=== PATIENT | female | born 1965 | race American Indian/Alaskan Native ===

== ENCOUNTER 2021-10-14 00:02 | Emergency (ER) | payer MEDICARE ==
--- NOTE | 2021-10-14 00:26 | Emergency Department Report ---
ED Psych HPI - General Chief Complaint: Psych Stated Complaint: MANIC Time Seen by Provider: 10/14/21 00:13 Source: patient, EMS Mode of arrival: Stretcher - History of Present Illness Initial Comments: Patient is 55 years old female with history of hypertension. Patient denied any psychiatric history before. Patient brought to the emergency room via EMS for mental health evaluation. Patient found to be manic. EMS stated the patient was really agitated and moving constantly. Patient received Versed and Benadryl by EMS for sedation. Upon arrival to the ER patient is alert, oriented x3 in no acute distress. Patient with mild pressured speech, flight of ideas and very delusional. Patient stated that somebody is trying to scam her. Patient stated that she lived in [place]. She denied any suicidal or homicidal ideation. She also denied any auditory or visual hallucination. Patient stated that she was drinking wine last night but she denied any drug abuse. MD Complaint: altered mental status - Related Data Allergies Allergy/AdvReac Type Severity Reaction Status Date / Time No Known Allergies Allergy Unverified 10/14/21 00:07 ED Review of Systems ROS: Stated complaint: MANIC Other details as noted in HPI Comment: All other systems reviewed and negative Constitutional: denies: chills, fever Respiratory: denies: cough, shortness of breath, SOB with exertion Cardiovascular: denies: chest pain, palpitations Gastrointestinal: denies: abdominal pain, nausea, vomiting, diarrhea, constipation, hematemesis, melena, hematochezia Musculoskeletal: denies: back pain Neurological: denies: headache, weakness Psychiatric: anxiety. denies: homicidal thoughts, suicidal thoughts ED Past Medical Hx - Past Medical History Previous Medical History?: Yes Hx Hypertension: Yes - Surgical History Past Surgical History?: Yes ED Physical Exam - General Limitations: Altered Mental Status General appearance: alert, in no apparent distress, anxious - Head Head exam: Present: atraumatic, normocephalic, normal inspection - Eye Eye exam: Present: normal appearance - ENT ENT exam: Present: normal exam, normal orophraynx, mucous membranes moist - Neck Neck exam: Present: normal inspection, full ROM. Absent: tenderness, meningismus - Respiratory Respiratory exam: Present: normal lung sounds bilaterally - Cardiovascular Cardiovascular Exam: Present: regular rate, normal rhythm, normal heart sounds - GI/Abdominal GI/Abdominal exam: Present: soft, normal bowel sounds. Absent: distended, tenderness, guarding, rebound, rigid, organomegaly, mass, bruit, pulsatile mass, hernia - Extremities Exam Extremities exam: Present: normal inspection, full ROM, normal capillary refill. Absent: tenderness - Back Exam Back exam: Present: normal inspection, full ROM. Absent: CVA tenderness (R), CVA tenderness (L) - Neurological Exam Neurological exam: Present: alert, oriented X3, CN II-XII intact, normal gait, reflexes normal. Absent: motor sensory deficit - Psychiatric Psychiatric exam: Present: anxious. Absent: agitated, homicidal ideation, suicidal ideation - Skin Skin exam: Present: warm, intact, normal color ED Course Vital Signs 10/14/21 10/14/21 10/14/21 00:06 02:53 10:23 Temperature 98.6 F 97.4 F L 98.6 F Pulse Rate 90 69 79 Respiratory 18 16 18 Rate Blood Pressure 101/66 91/52 109/61 [Left] O2 Sat by Pulse 100 98 100 Oximetry 10/14/21 17:58 Temperature 97.8 F Pulse Rate 89 Respiratory 18 Rate Blood Pressure 122/78 [Left] O2 Sat by Pulse 99 Oximetry ED Medical Decision Making - Lab Data Result diagrams: 10/14/21 00:29 10/14/21 00:29 - Medical Decision Making Patient is 55 years old female with history of hypertension. Patient denied any psychiatric history before. Patient brought to the emergency room via EMS for mental health evaluation. Patient found to be manic. EMS stated the patient was really agitated and moving constantly. Patient received Versed and Benadryl by EMS for sedation. Upon arrival to the ER patient is alert, oriented x3 in no acute distress. Patient with mild pressured speech, flight of ideas and very delusional. Patient stated that somebody is trying to scam her. Patient stated that she lived in [place]. She denied any suicidal or homicidal ideation. She also denied any auditory or visual hallucination. Patient stated that she was drinking wine last night but she denied any drug abuse. Labs reviewed and is unremarkable except for alcohol level of 0.21. Patient will need to be sober first before psychiatric evaluation. Critical care attestation.: If time is entered above; I have spent that time in minutes in the direct care of this critically ill patient, excluding procedure time. ED Disposition Clinical Impression: Alcohol intoxication Disposition: HOME / SELF CARE / HOMELESS Is pt being admited?: No Condition: Stable Additional Instructions: Professional and Agency Contacts To help [facility](19/04) [place] Crisis Line: Suicide Prevention Line: Crisis Text Line: Text START to 151368 Emergency: 911 Outpatient COMMUNITY Behavioral Health Resources: DEKALB: [facility] [address] [place], [place] [address] [place]: [facility] [address] [place] [address] [place]: [facility] [address] [place] [address] Wednesday thru Wednesday - 8am - 5pm [place]: [facility] Address: [address], [place] [address] DES[place]: [facility] Address: [address] [place] [address] Wednesday thru Wednesday- 7am-2pm [facility] Address: [address] [place] [address] Wednesday thru Wednesday: 8:30AM-5PM OUTPATIENT MENTAL HEALTH RESOURCES [facility], [facility] Poornima Fernando MD: [address], [address] [facility] [address] [place] [address] [place] [address] [place] [facility]: [facility] [address] [place] [address] [place] [address] [phone] [facility]: [facility] Healthcare: [address] [facility] [place] [address] [facility] [address] [place] [facility]: Oh Sullivan MD: [address] [facility] [address] [facility] [address] [facility]: [address] [place], [place] [address] [address] [phone] [place] CRISIS AND ACCESS LINE: Referrals: PRIMARY CAREMD [Primary Care Provider] - 3-5 Days
[2021-10-14 00:51] LABS: Basophils # (Auto) 0.1 K/mm3 (0.0-0.1); Basophils % (Auto) 0.9 % (0.0-1.8); Eosinophils # (Auto) 0.1 K/mm3 (0.0-0.4); Eosinophils % (Auto) 1.3 % (0.0-4.3); Hematocrit 36.5 % (30.3-42.9); Hemoglobin 11.3 gm/dl (10.1-14.3); Lymphocytes # (Auto) 2.5 K/mm3 (1.2-5.4); Lymphocytes % (Auto) 42.5 % (13.4-35.0); Mean Corpuscular HGB Conc 31 % (30-34); Mean Corpuscular Volume 86 fl (79-97); Monocytes # (Auto) 0.6 K/mm3 (0.0-0.8); Monocytes % (Auto) 9.3 % (0.0-7.3); Platelet Count 293 K/mm3 (140-440); Red Blood Count 4.23 M/mm3 (3.65-5.03); Red Cell Distribution Width 17.2 % (13.2-15.2)
[2021-10-14 01:05] LABS: Calcium 8.5 mg/dL (8.4-10.2)
[2021-10-14 01:08] LABS: Alanine Aminotransferase 13 units/L (7-56); Albumin 4.1 g/dL (3.9-5)
[2021-10-14 01:16] LABS: Bilirubin,Direct < 0.2 mg/dL (0-0.2)
[2021-10-14 01:31] LABS: Bilirubin,Urine NEG (Negative); Blood,Urine SM (Negative); Color,Urine Colorless (Yellow); Mucus,Urine FEW /HPF; Protein,Urine <15 mg/dL mg/dL (Negative); Urobilinogen,Urine < 2.0 mg/dL (<2.0)
[2021-10-14 01:36] LABS: Amphetamine Screen,Urine PRESUMPTIVE NEGATIVE; Benzodiazepines Screen,Urine PRESUMPTIVE POSITIVE; Cannabinoid Screen,Urine PRESUMPTIVE NEGATIVE; Cocaine Screen,Urine PRESUMPTIVE NEGATIVE; Methadone Screen,Urine PRESUMPTIVE NEGATIVE; Opiate Screen,Urine PRESUMPTIVE NEGATIVE
--- NOTE | 2021-10-14 11:18 | Emergency Department Report ---
Blank Doc - Documentation Documentation: This patient presented overnight for a mental health evaluation. At that time she was found to be manic with pressured speech, tangential ideas and required some sedation. She was found to have a blood alcohol level of 0.21. No further events overnight. She has not yet been seen by the psychiatric team for evaluation. By this time, 11:15 AM, the patient should be both clinically sober and legally sober. I will recheck the blood alcohol level but the patient is now awaiting psychiatric evaluation. We will continue to monitor her during her ED course. Vital signs reassuring including being afebrile.
--- NOTE | 2021-10-14 12:23 | Consultation ---
History of Present Illness - Reason for Consult Consult date: 10/14/21 Reason for consult: agitation - History of Present Psychiatric Illness The patient was seen today. She is a/o x 3. She is calm and cooperative. The patient says she was brought to the hospital because her daughter called and had her brought here. She says "my daughter doesn't want me there. She's been acting like this for a couple of days." The patient says "I was angry, but not sure why she had me brought here." She says she lives with her daughter but is from [place]. The patient says she's been in [place] for a month. She says she has a history of depression, PVD and fibromyalgia. The patient says she was on zoloft for depression but no longer takes it. She says she's not interested in taking meds at this time. She says "I'm fine and I been fine." She says she is . The patient denies any drugs, alcohol or nicotine. She also denies SI/HI or hallucinations of any kind. REVIEW OF SYSTEMS Constitutional: Negative for weight loss ENT: Negative for stridor Respiratory: Negative for cough or hemoptysis All other systems reviewed and are negative MENTAL STATUS EXAMINATION General Appearance and Behavior: Age appropriate, good hygiene, wearing appropriate clothes, calm and cooperative Cooperation: cooperative Psychomotor Behavior: Normal Mood: okay Affect and affective range: congruent with stated mood Thought Process: Goal directed Thought Content: none Speech: Normal Suicidal Ideation: Denies Homicidal Ideation: Denies Hallucination: Denies Delusions: None elicited Impulse Control: Poor Insight and Judgment: limited insight and fair judgment Memory: limited Attention: attentive Orientation: Alert and oriented Assessment (1) Mental Health Evaluation Treatment Plan No meds prescribed at this time Medical: per primary Disposition: Do not recommend acute psychiatric inpatient treatment Will sign. Thanks Case staffed with Dr. Estrada Medications and Allergies Allergies Allergy/AdvReac Type Severity Reaction Status Date / Time No Known Allergies Allergy Unverified 10/14/21 00:07 Mental Status Exam - Vital signs Last Vital Signs Temp 98.6 F 10/14/21 10:23 Pulse 79 10/14/21 10:23 Resp 18 10/14/21 10:23 BP 109/61 10/14/21 10:23 Pulse Ox 100 10/14/21 10:23 Results Result Diagrams: 10/14/21 00:29 10/14/21 00:29 Abnormal lab results 10/14/21 10/14/21 10/14/21 Range/Units 00: 00: 00:29 MCH 27 L (28-32) pg RDW 17.2 H (13.2-15.2) % Lymph % (Auto) 42.5 H (13.4-35.0) % [place] % (Auto) 9.3 H (0.0-7.3) % Sodium 135 L (137-145) mmol/L Carbon Dioxide 21 L (22-30) mmol/L BUN 19 H (7-17) mg/dL Glucose 109 H (65-100) mg/dL Alkaline Phosphatase (35-129) units/L Salicylates < 0.3 L (2.8-20.0) mg/dL Acetaminophen (10.0-30.0) ug/mL Plasma/Serum Alcohol (0-0.07) % 10/14/21 10/14/21 10/14/21 Range/Units 00: 00:29 00:29 MCH (28-32) pg RDW (13.2-15.2) % Lymph % (Auto) (13.4-35.0) % [place] % (Auto) (0.0-7.3) % Sodium (137-145) mmol/L Carbon Dioxide (22-30) mmol/L BUN (7-17) mg/dL Glucose (65-100) mg/dL Alkaline Phosphatase 133 H (35-129) units/L Salicylates (2.8-20.0) mg/dL Acetaminophen 5.0 L (10.0-30.0) ug/mL Plasma/Serum Alcohol 0.21 H (0-0.07) % All other labs normal.
[2021-10-14 17:59] VITALS: BP 122/78
== END 2021-10-14 17:58 | disposition home or self-care (01) ==
LOC: ED 00:02
DX: F10.129 Alcohol abuse with intoxication, unspecified (principal); I10 Essential (primary) hypertension; Z98.890 Other specified postprocedural states; Y90.9 Presence of alcohol in blood, level not specified
CPT/HCPCS: 36415; 80048; 80076; 80307; 80320; 81001; 85025; 99284; G0480